=== PATIENT | female | born 1945 ===

== ENCOUNTER 2017-01-27 08:08 | Day surgery (SDC) | payer MEDICARE, OTHER ==
[2017-01-27 08:34] VITALS: BMI 20.8
[2017-01-27 08:58] VITALS: O2SAT 100
--- NOTE | 2017-01-27 09:05 | CP.SDSHP ---
Same Day Surgery H & P - History Proposed Procedure: EGD Pre-Op Diagnosis: SEE NOTES - Previous Medical/Surgical History Cardiac: Hypertension, Previous PA Endocrine/Metabolic: Other Misc: Other Pain: 4.Moderate Pain - Allergies Allergies: Allergies No Known Allergies Allergy (Verified 01/27/17 08:33) - Physical Exam General Appearance: N Vital Signs: Vital Signs 01/27/17 08:50 Temperature 97.5 F L Pulse Rate 79 Respiratory 16 Rate Blood Pressure 125/75 O2 Sat by Pulse 100 Oximetry Mental Status: Alert & Oriented x3 Neuro: WNL Heart: Other Lungs: WNL GI: Other - {Optional Preform as Required} Breast: WNL Abdomen: Other Rectal: Other Integument: WNL : WNL Ortho: Other ENT: WNL - Impression Pt. Evaluated Today:Candidate for Anesthesia & Procedure: Yes - Date & Time Time: 09:05 Short Stay Discharge - Short Stay Discharge Admitting Diagnosis/Reason for Visit: DYSPEPSIA Disposition: HOME/ ROUTINE
[2017-01-27] MEDS ORDERED: Belladonna-Phenobarbital PO STA (09:06)
[2017-01-27] MEDS ORDERED: Pantoprazole 40 mg EC Tab PO STA (09:07)
[2017-01-27] MEDS ORDERED: Propofol 10 mg/ml Inj (20 ML) ONE (09:10)
[2017-01-27] MEDS ORDERED: Lidocaine Hydrochloride 10 ML INJ ONE (09:11)
[2017-01-27 11:51] VITALS: BP 123/69; PULSE 71; RESP 20; TEMP 96.9
== END 2017-01-27 10:50 | disposition home or self-care (01) ==
LOC: C.ENDO 08:08
PROVIDERS: ATTEND Specialist
DX: K21.0 Gastro-esophageal reflux disease with esophagitis (principal); K44.9 Diaphragmatic hernia without obstruction or gangrene; K25.9 Gastric ulcer, unspecified as acute or chronic, without hemorrhage or perforation; K31.9 Disease of stomach and duodenum, unspecified; K29.50 Unspecified chronic gastritis without bleeding; I25.10 Atherosclerotic heart disease of native coronary artery without angina pectoris; I25.2 Old myocardial infarction; E11.9 Type 2 diabetes mellitus without complications; I10 Essential (primary) hypertension; E78.5 Hyperlipidemia, unspecified; Z79.82 Long term (current) use of aspirin; Z79.899 Other long term (current) drug therapy

== ENCOUNTER 2017-02-01 07:58 | Day surgery (SDC) | payer MEDICARE, OTHER ==
[2017-02-01] MEDS ORDERED: Propofol 10 mg/ml Inj (20 ML) ONE (09:53)
--- NOTE | 2017-02-01 09:57 | CP.SDSHP ---
Same Day Surgery H & P - History Proposed Procedure: COLONSCOPY Pre-Op Diagnosis: SEE NOTES - Previous Medical/Surgical History Cardiac: Hypertension Endocrine/Metabolic: Diabetes, Other Misc: Other Pain: 4.Moderate Pain - Allergies Allergies: Allergies No Known Allergies Allergy (Verified 02/01/17 08:33) - Physical Exam General Appearance: N Mental Status: Alert & Oriented x3 Neuro: WNL Heart: Other Lungs: WNL GI: Other - {Optional Preform as Required} Breast: WNL Abdomen: Other Rectal: Other Integument: WNL : WNL Ortho: Other ENT: WNL - Impression Pt. Evaluated Today:Candidate for Anesthesia & Procedure: Yes - Date & Time Time: 09:56 Short Stay Discharge - Short Stay Discharge Admitting Diagnosis/Reason for Visit: DIARRHEA, UNSPECIFIED Disposition: HOME/ ROUTINE
[2017-02-01] MEDS ORDERED: Belladonna-Phenobarbital PO STA (09:58)
[2017-02-01] MEDS ORDERED: Glucagon Recombinant 1 mg Inj ONE (10:07)
[2017-02-02 15:49] VITALS: TEMP 97.3
[2017-02-02 15:57] VITALS: BP 106/74; PULSE 69; RESP 16; O2SAT 98
== END 2017-02-01 11:42 | disposition home or self-care (01) ==
LOC: C.ENDO 07:58
PROVIDERS: ATTEND Specialist
DX: R10.9 Unspecified abdominal pain (principal); K64.4 Residual hemorrhoidal skin tags; K58.0 Irritable bowel syndrome with diarrhea; K57.90 Diverticulosis of intestine, part unspecified, without perforation or abscess without bleeding
CPT/HCPCS: 45378; 82948; J1610; J2704

== ENCOUNTER 2017-05-26 07:53 | Day surgery (SDC) | payer MEDICARE, OTHER ==
[2017-05-26 08:25] VITALS: BMI 19.1
[2017-05-26] MEDS ORDERED: Propofol 10 mg/ml Inj (20 ML) ONE ×2 (10:26→10:46)
[2017-05-26 10:30] VITALS: O2SAT 100
[2017-05-26] MEDS ORDERED: Lactated Ringer's 500 ML IV SCH (10:30)
[2017-05-26 11:05] VITALS: TEMP 98.7
[2017-05-26 13:05] VITALS: RESP 18
[2017-05-26 13:07] VITALS: BP 114/63; PULSE 75
== END 2017-05-26 12:05 | disposition home or self-care (01) ==
LOC: C.ENDO 07:53
PROVIDERS: ATTEND Internal Medicine Gastroenterology
DX: K64.8 Other hemorrhoids (principal); K57.30 Diverticulosis of large intestine without perforation or abscess without bleeding
CPT/HCPCS: 45378; 82948; J2704; J3010; J7040; J7120

== ENCOUNTER 2017-07-14 08:49 | Day surgery (SDC) | payer MEDICARE, OTHER ==
[2017-07-14] MEDS ORDERED: Propofol 10 mg/ml Inj (20 ML) ONE (12:21)
[2017-07-14] MEDS ORDERED: Lactated Ringer's 500 ML IV SCH (12:30)
[2017-07-14 13:08] VITALS: TEMP 97
[2017-07-14 13:53] VITALS: BP 127/68; PULSE 75; RESP 20; O2SAT 98
== END 2017-07-14 13:51 | disposition home or self-care (01) ==
LOC: C.ENDO 08:49
PROVIDERS: ATTEND Internal Medicine Gastroenterology
DX: K29.70 Gastritis, unspecified, without bleeding (principal)
CPT/HCPCS: 43239; 82948; 88305; 88342; J2704; J7120